=== PATIENT | male | born 1995 | race Two or more races ===

== ENCOUNTER 2017-09-19 15:53 | Inpatient (IN) | payer OTHER ==
[~2017-09-19] VITALS: Ht 180.3 cm; Wt 74.0 kg
--- NOTE | 2017-09-19 17:08 | REP ---
CT Head without contrast HISTORY: Hallucinations COMPARISON: None There is no intraparenchymal hemorrhage, acute infarct, mass or midline shift. The ventricular system is normal in appearance. There is no extra cerebral collection. There is no fracture. The visualized sinuses are clear. IMPRESSION: There is no intracranial lesion. Signed by Edison Prasad MD 09/19/2017 04:59 P
[2017-09-19 17:12] LABS: MEAN CORPUSCULAR HEMOGLOBIN 29.8 pg (27.0-33.0); MEAN CORPUSCULAR HGB CONC 32.1 g/dl (32.0-36.5); MEAN CORPUSCULAR VOLUME 92.8 fl (80.0-96.0); PLATELET COUNT, AUTOMATED 147 10^3/uL (150-450); RED CELL DISTRIBUTION WIDTH 11.9 % (11.5-14.5); WHITE BLOOD COUNT 6.9 10^3/uL (4.0-10.0)
[2017-09-19 17:37] LABS: ALBUMIN/GLOBULIN RATIO 1.43 (1.00-1.93); ALKALINE PHOSPHATASE 89 U/L (45-117); ALT/SGPT 27 U/L (12-78); ANION GAP 6 MEQ/L (8-16); AST/SGOT 23 U/L (7-37); BILIRUBIN,DIRECT 0.1 MG/DL (0.0-0.2); BILIRUBIN,TOTAL 0.4 MG/DL (0.2-1.0); BLOOD UREA NITROGEN 10 MG/DL (7-18); CARBON DIOXIDE LEVEL 29 MEQ/L (21-32); CHLORIDE LEVEL 107 MEQ/L (98-107); CREATININE FOR GFR 1.05 MG/DL (0.70-1.30); GLOMERULAR FILTRATION RATE > 60.0 (>60); GLUCOSE, FASTING 99 MG/DL (70-105); POTASSIUM SERUM 4.3 MEQ/L (3.5-5.1); SODIUM LEVEL 142 MEQ/L (136-145); TOTAL PROTEIN 6.8 GM/DL (6.4-8.2)
[2017-09-19 18:20] LABS: METHADONE URINE NEGATIVE (NEGATIVE)
[2017-09-19] MEDS ORDERED: MOM 30ML SUSPENSION UDC PO PRN (19:00)
[2017-09-19] MEDS ORDERED: traZODone 50 MG TAB PO PRN (19:00)
[2017-09-19] MEDS ORDERED: MAALOX 30 ML SUSP *UDC PO PRN (19:00)
[2017-09-19] MEDS ORDERED: ACETAMINOPHEN TAB 650MG DOSE (2X325MG) PO PRN (19:00)
[2017-09-19 22:28] VITALS: BP 126/79
[2017-09-19] MEDS ORDERED: guaiFENesin SYRUP 200 MG/10 ML UDC PO PRN (23:45)
[2017-09-20 07:00] VITALS: BP 109/80
--- NOTE | 2017-09-20 09:48 | HPEPDOC ---
[facility] Medical History & Physical Date of Admission Sep 19, 2017 History and Physical PCP: [facility] ATTENDING: Dr. Lyle Baptiste HPI: 22 yo M admitted to [facility] for unspecified psychotic disorder, being medically examined today. No acute medical complaints today. Denies any fevers, chills, weakness, fatigue, [place], CP, SOB, cough, palpitations, abdominal pain, N/V /D or changes in bowel or bladder habits. PMHx: Patient states history of hearing voices since 12/21 PSHX: [place] teeth extraction SOCHX: Resides in: [facility], from [place] Marital Status: Single Kids: None Employment: Active duty Tobacco use: Denies ETOH: Denies Illicit Drugs: Denies IV Drug Use: Denies Tattoos done unprofessionally: Denies FAMHX: Mother: Alive, well Father: Alive, well Siblings: Alive, well Children: None Unexpected deaths due to medical reasons: None. ROS: As noted in HPI, otherwise 11pt ROS of systems reviewed and remarkable only for observed head jerking/involuntary movements toward the left side. The patient states this is related to hearing voices currently. PE: GEN: 22 yo M, appears stated age. Well-nourished, well developed. No acute distress. Alert and oriented x 3. Avoids eye contact, provide short answers. HEENT: Normocephalic, atraumatic. Pupils are equal, round, and reactive to light. Extraocular movements are intact. No nystagmus appreciated. Sclera are nonicteric. Conjunctiva without injection. Nose midline. Nasal turbinates without bogginess. EACs both patent BL. TMs both visualized and young with good cone of light, no bulging or erythema. No facial asymmetry. Moist mucous membranes. Dentition fair. Pharynx pink and moist, no cobblestoning. Neck supple , trachea midline. No lymphadenopathy or thyromegaly appreciated. CHEST: Regular rate and rhythm, +S1, +S2 LUNGS: Clear to auscultation bilaterally. No wheezes, rales, or rhonchi. Breathing appears symmetric and easy. Patient is speaking in full sentences. No accessory muscle use. ABD: Round, soft, non-tender, non-distended. +Bowel sounds throughout. No rebound or guarding. No costovertebral angle tenderness. EXT: Pulses 2+ bilaterally dorsalis pedis and radial. No lower extremity edema appreciated. SKIN: [place], dry, warm. Capillary refill <2sec. No rashes. NEURO: Alert and oriented x 3. Cranial nerves III-XII are intact. No focal deficits appreciated. Involuntary movements of the head noted during exam. EKG: pending. CT head 09/19/17 There is no intracranial lesion. A&P: 22 yo M admitted to [facility] for unspecified psychotic disorder 1. Psych. Plan per Psychiatry. Obtain baseline EKG to assure the safety of psychiatric medications as they can prolong the QT interval. Request UA/urine culture. CT head 09/19/17 with no acute abnormality. 2. Follow up with PCP on discharge. 3. Staff member Ed present throughout exam. Vital Signs Vital Signs Date Time Temp Pulse Resp B/P (MAP) Pulse Ox O2 Delivery O2 Flow Rate FiO2 09/20/17 07:00 97.9 53 14 109/80 (90) 09/19/17 22:28 100 Room Air Laboratory Data Labs 24H Laboratory Tests 2 09/19/17 16:41: Nucleated Red Blood Cells % (auto) 0.0, Anion Gap 6L, Glomerular Filtration Rate > 60.0, Calcium Level 9.0, Aspartate Amino Transf (AST/SGOT) 23, Alanine Aminotransferase (ALT/SGPT) 27, Alkaline Phosphatase 89, Total Bilirubin 0.4, Direct Bilirubin 0.1, Total Protein 6.8, Albumin 4.0, Albumin/Globulin Ratio 1.43, Thyroid Stimulating Hormone (TSH) 0.916, Salicylates Level < 1.7L, Urine Amphetamines Screen NEGATIVE, Urine Benzodiazepines Screen NEGATIVE, Urine Opiates Screen NEGATIVE, Urine Methadone Screen NEGATIVE, Acetaminophen Level < 2.0L, Urine Barbiturates Screen NEGATIVE, Urine Phencyclidine Screen NEGATIVE, Urine Cocaine Metabolite Screen NEGATIVE, Urine Cannabinoids Screen NEGATIVE, Ethyl Alcohol Level < 0.003 CBC/BMP Laboratory Tests 09/19/17 16:41 Red Blood Count 4.70, Mean Corpuscular Volume 92.8, Mean Corpuscular Hemoglobin 29.8, Mean Corpuscular Hemoglobin Concent 32.1, Red Cell Distribution Width 11.9 Home Medications No Active Prescriptions or Reported Meds Allergies Coded Allergies: No Known Allergies (Unverified , 09/19/17) Katlyn Delgado Sep 20, 2017 09:48
[2017-09-20] MEDS ORDERED: traZODone 50 MG TAB PO PRN (10:30)
[2017-09-20] MEDS: CitaloPRAM (CeleXA) 20 MG TAB PO SCH (10:33)
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
[2017-09-20 18:00] VITALS: BP 118/58
[2017-09-20] MEDS ORDERED: PALIPERIDONE 3 MG ER TAB (INVEGA) PO SCH (21:00)
[2017-09-21 06:46] VITALS: BP 119/53
[2017-09-21] MEDS: CitaloPRAM (CeleXA) 20 MG TAB PO SCH (09:13)
--- NOTE | 2017-09-21 14:56 | REP ---
MR BRAIN WITHOUT CONTRAST: TECHNIQUE: Multiple sequences obtained in the sagittal, axial planes. No IV contrast was administered. Ventricles are normal in size and position with no midline shift or mass. The oro-white differentiation is well maintained. No abnormal signal is seen in the brain, brainstem or cerebellum. Seventh and eighth cranial nerves complexes appear unremarkable. There is a mild amount of mucosal thickening in the maxillary sinuses bilaterally. As well as in the bilateral ethmoid sinuses. The globes are intact. IMPRESSION: Essentially negative MRI brain. Mild mucosal thickening in the ethmoid and maxillary sinuses. Signed by Hakeem Oro MD 09/21/2017 11:58 A
--- NOTE | 2017-09-21 17:23 | MHIPNPDOC ---
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 He says these voices have never been command type apart from one instance when it was his mom's, telling him to clean his room. He says the voices have never told him to harm himself or others. VITAL SIGNS: See below. NEW TEST RESULTS: N/A CURRENT MEDICATIONS: See below. MENTAL STATUS EXAMINATION: General appearance: Cooperative, dressed in hospital clothes, with poor eye contact and no muscle spasms at this time Speech: Non-spontaneous, decreased in rate, rhythm and volume. Thought processes: Linear, logical Thought content: Denies suicidal ideation, homicidal ideation. he says there's a shadow outside of his window and that he hears a chain at night. He describes paranoid delusions, Abstract reasoning and computation: Not assessed at this time. Description of associations: Good Description of abnormal or psychotic thoughts: has auditory hallucinations, visual hallucinations, denies SI and denies HI. Judgment: Poor Insight: Poor Orientation: To person, place, time. Recent and remote memory: Intact Attention span and concentration: Poor Fund of knowledge: Average. Mood: "Depressed, I just want to go home, I want to be with my family. A little bit angry because the voices won't stop " Affect: Depressed DIAGNOSES: 1. Unspecified psychotic disorder 2. Unspecified depressive disorder 3. Post traumatic stress disorder (PTSD). 4. Cluster B traits ASSESSMENT: Patient is a little bit better, even when he describes auditory hallucinations. he is not presenting with muscle twitching and his mood and affect are still depressed but a little less than yesterday. Increased Invega to 3 mgs. PO BID TIME SPENT: 20 minutes. Vital Signs Vital Signs Date Time Temp Pulse Resp B/P (MAP) Pulse Ox O2 Delivery O2 Flow Rate FiO2 09/21/17 06:46 97.7 66 14 119/53 (75) Room Air 11/16/17 22:28 100 Current Medications Current Medications Acetaminophen (Tylenol Tab) 650 mg Q6HP PRN PO HEADACHE or DISCOMFORT; Start 09/19/17 at 19:00; Stop 10/19/17 at 18:59 Al Hydrox/Mg Hydrox/Simethicone (Mylanta) 30 ml Q4HP PRN PO HEARTBURN/ INDIGESTION; Start 09/19/17 at 19:00; Stop 10/19/17 at 18:59 Citalopram Hydrobromide (CeleXA) 20 mg DAILY PO Last administered on 09:13; Start 09/20/17 at 09:00; Stop 10/20/17 at 08:59 Guaifenesin (Robitussin) 10 ml Q6HP PRN PO COUGH; Start 09/19/17 at 23:45; Stop 10/19/17 at 23:44 Home Med (Med Rec Complete!) ASDIRECTED XX ; Start 09/19/17 at 19:00; Stop at 19:01; Status DC Magnesium Hydroxide (Milk Of Magnesia) 30 ml DAILYPRN PRN PO CONSTIPATION; Start 09/19/17 at 19:00; Stop 10/19/17 at 18:59 Paliperidone (Invega) 3 mg QHS PO Last administered on 09/20/17t 21:19; Start 09/20/17 at 21:00; Stop 10/20/17 at 20:59 Trazodone HCl (Desyrel) 50 mg QHSP PRN PO INSOMNIA; Start 09/19/17 at 19:00; Stop 09/20/17 at 10:19; Status DC Trazodone HCl (Desyrel) 75 mg QHSP PRN PO INSOMNIA; Start 09/20/17 at 10:30; Stop 09/20/17 at 13:41; Status DC Trazodone HCl (Desyrel) 75 mg QHSP PRN PO INSOMNIA; Start 09/20/17 at 13:45; Stop 10/20/17 at 13:44 Allergies Coded Allergies: No Known Allergies (Unverified , 09/19/17) ISH BERMAN MD Sep 21, 2017 17:23
[2017-09-21 18:00] VITALS: BP 122/66
[2017-09-21] MEDS: PALIPERIDONE 3 MG ER TAB (INVEGA) PO SCH (21:14)
[2017-09-21] MEDS: traZODone 25MG PER 1/2 TABLET PO PRN (21:15)
[2017-09-22 06:00] VITALS: BP 101/56
[2017-09-22] MEDS: CitaloPRAM (CeleXA) 20 MG TAB PO SCH (08:52)
[2017-09-22] MEDS: PALIPERIDONE 3 MG ER TAB (INVEGA) PO SCH ×2 (08:53→20:36)
--- NOTE | 2017-09-22 14:28 | MHIPNPDOC ---
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 He says these voices have never been command type apart from one instance when it was his mom's, telling him to clean his room. He says the voices have never told him to harm himself or others. VITAL SIGNS: See below. NEW TEST RESULTS: N/A CURRENT MEDICATIONS: See below. MENTAL STATUS EXAMINATION: General appearance: Cooperative, pleasant, presents with no muscle spasms at this time. Good hygiene and grooming, poor eye contact, dressed in hospital clothes Speech: Non spontaneous and nonfluent but is normal in tone, volume and rate Thought processes: Coherent Thought content: Denies suicidal ideation, homicidal ideation. He says "the voices are getting quieter, I only hear a female voice as if she will be trying to catch my attention by calling my name". Admits occasional paranoid ideations. Abstract reasoning and computation: Fair Description of associations: Good Description of abnormal or psychotic thoughts: Denies visual hallucinations but admits to hearing a female voice . He said "the voices are getting quieter" .he denies SI and denies HI. Judgment: Poor Insight: Poor Orientation: To person, place, time. Recent and remote memory: Intact Attention span and concentration: Poor Fund of knowledge: Average. Mood: "Depressed, I just want to go home, I want to be with my family. A little bit angry because the voices won't stop " Affect: Depressed DIAGNOSES: 1. Unspecified psychotic disorder 2. Unspecified depressive disorder 3. Post traumatic stress disorder (PTSD). 4. Cluster B traits ASSESSMENT: The patient says that he feels much better, he is not having visual hallucinations and according to him the auditory hallucinations have decreased to the point that he is only hearing a female voice that is trying to catch his attention. He says he still feels tired and he has been asking for being discharged because he wants to go home with his family. This morning his mother contacted the nurses station because he told his mother that I needed and I explained to the community sports coordinator who took the phone call that I never told him that I wanted to speak with his mom. 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 Patient will continue on Invega 3 mg by mouth twice a day and hopefully if he continues to improve will be looking at a discharge her on September 25. TIME SPENT: 20 minutes. Vital Signs Vital Signs Date Time Temp Pulse Resp B/P (MAP) Pulse Ox O2 Delivery O2 Flow Rate FiO2 09/22/17 06:00 97.3 57 14 101/56 (71) 09/21/17 06:46 Room Air 09/19/17 22:28 100 Current Medications Current Medications Acetaminophen (Tylenol Tab) 650 mg Q6HP PRN PO HEADACHE or DISCOMFORT; Start 09/19/17 at 19:00; Stop 10/19/17 at 18:59 Al Hydrox/Mg Hydrox/Simethicone (Mylanta) 30 ml Q4HP PRN PO HEARTBURN/ INDIGESTION; Start 09/19/17 at 19:00; Stop 10/19/17 at 18:59 Citalopram Hydrobromide (CeleXA) 20 mg DAILY PO Last administered on 08:52; Start 09/20/17 at 09:00; Stop 10/20/17 at 08:59 Guaifenesin (Robitussin) 10 ml Q6HP PRN PO COUGH; Start 09/19/17 at 23:45; Stop 10/19/17 at 23:44 Home Med (Med Rec Complete!) ASDIRECTED XX ; Start 09/19/17 at 19:00; Stop at 19:01; Status DC Magnesium Hydroxide (Milk Of Magnesia) 30 ml DAILYPRN PRN PO CONSTIPATION; Start 09/19/17 at 19:00; Stop 10/19/17 at 18:59 Paliperidone (Invega) 3 mg BID PO Last administered on 09/22/17 08:53; Start 09/21/17 at 21:00; Stop 10/20/17 at 20:59 Paliperidone (Invega) 3 mg QHS PO Last administered on 09/20/17 21:19; Start 09/20/17 at 21:00; Stop 09/21/17 at 17:40; Status DC Trazodone HCl (Desyrel) 50 mg QHSP PRN PO INSOMNIA; Start 09/19/17 at 19:00; Stop 09/20/17 at 10:19; Status DC Trazodone HCl (Desyrel) 75 mg QHSP PRN PO INSOMNIA; Start 09/20/17 at 10:30; Stop 09/20/17 at 13:41; Status DC Trazodone HCl (Desyrel) 75 mg QHSP PRN PO INSOMNIA Last administered on t 21:15; Start 09/20/17 at 13:45; Stop 10/20/17 at 13:44 Allergies Coded Allergies: No Known Allergies (Unverified , 09/19/17) ISH BERMAN MD Sep 22, 2017 14:28
[2017-09-22] MEDS ORDERED: diphenhydrAMINE 50 MG CAP PO PRN (14:30)
[2017-09-22 18:00] VITALS: BP 110/66
[2017-09-22] MEDS: traZODone 25MG PER 1/2 TABLET PO PRN (20:36)
[2017-09-23 06:00] VITALS: BP 107/54
[2017-09-23] MEDS: CitaloPRAM (CeleXA) 20 MG TAB PO SCH (09:04)
[2017-09-23] MEDS: PALIPERIDONE 3 MG ER TAB (INVEGA) PO SCH ×2 (09:04→21:45)
--- NOTE | 2017-09-23 15:04 | MHIPNPDOC ---
[facility] Progress Note Progress Note DATE OF SERVICE: 09/23/17 HISTORY: Patient is a 22-year-old male, [employer], who has "no" prior psychiatric or significant medical history apart from "an inhaler for allergies ". 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 He says these voices have never been command type apart from one instance when it was his mom's, telling him to clean his room. He says the voices have never told him to harm himself or others. VITAL SIGNS: See below. NEW TEST RESULTS: N/A CURRENT MEDICATIONS: See below. MENTAL STATUS EXAMINATION: General appearance: Cooperative, pleasant, with good eye contact. Good hygiene and grooming, poor eye contact, dressed in hospital clothes Speech: More spontaneous and fluent at this time. Thought processes: Linear Thought content: focused on how he is gong to overcome his disease Abstract reasoning and computation: Fair Description of associations: Good Description of abnormal or psychotic thoughts: Denies A/V hallucinations. He denies SI and denies HI. Denies thought delusions Judgment: Limited Insight: Limited Orientation: To person, place, time. Recent and remote memory: Intact Attention span and concentration: Fair Fund of knowledge: Average. Mood: "I'm doing well today " Affect: Euthymic DIAGNOSES: 1. Unspecified psychotic disorder 2. Unspecified depressive disorder 3. Post traumatic stress disorder (PTSD). 4. Cluster B traits ASSESSMENT: The patient says he feels better, he says he is not having auditory hallucinations and his paranoid delusions are gone.He remembers having paranoid delusions when this episode started. At the very beginning it was only sadness but shortly after the voices came in and he says those voices were telling him he was worthless, useless nobody cared about hi. The voices made him feel very upset. The patient could have Major Depressive d/O with psychotic features. TIME SPENT: 20 minutes. Vital Signs Vital Signs Date Time Temp Pulse Resp B/P (MAP) Pulse Ox O2 Delivery O2 Flow Rate FiO2 09/23/17 06:00 98.2 60 16 107/54 (71) 09/21/17 06:46 Room Air 11/16/17 22:28 100 Current Medications Current Medications Acetaminophen (Tylenol Tab) 650 mg Q6HP PRN PO HEADACHE or DISCOMFORT; Start 09/19/17 at 19:00; Stop 10/19/17 at 18:59 Al Hydrox/Mg Hydrox/Simethicone (Mylanta) 30 ml Q4HP PRN PO HEARTBURN/ INDIGESTION Last administered on 09/22/17 20:36; Start 09/19/17 at 19:00; Stop 10/19/17 at 18:59 Citalopram Hydrobromide (CeleXA) 20 mg DAILY PO Last administered on 09:04; Start 09/20/17 at 09:00; Stop 10/20/17 at 08:59 Diphenhydramine HCl (Benadryl) 50 mg Q8HP PRN PO MUSCLE SPASMS; Start at 14:30; Stop 10/22/17 at 14:29 Guaifenesin (Robitussin) 10 ml Q6HP PRN PO COUGH; Start 09/19/17 at 23:45; Stop 10/19/17 at 23:44 Home Med (Med Rec Complete!) ASDIRECTED XX ; Start 09/19/17 at 19:00; Stop at 19:01; Status DC Magnesium Hydroxide (Milk Of Magnesia) 30 ml DAILYPRN PRN PO CONSTIPATION; Start 09/19/17 at 19:00; Stop 10/19/17 at 18:59 Paliperidone (Invega) 3 mg BID PO Last administered on 09/23/17 09:04; Start 09/21/17 at 21:00; Stop 10/20/17 at 20:59 Paliperidone (Invega) 3 mg QHS PO Last administered on 09/20/17 21:19; Start 09/20/17 at 21:00; Stop 09/21/17 at 17:40; Status DC Trazodone HCl (Desyrel) 50 mg QHSP PRN PO INSOMNIA; Start 09/19/17 at 19:00; Stop 09/20/17 at 10:19; Status DC Trazodone HCl (Desyrel) 75 mg QHSP PRN PO INSOMNIA; Start 09/20/17 at 10:30; Stop 09/20/17 at 13:41; Status DC Trazodone HCl (Desyrel) 75 mg QHSP PRN PO INSOMNIA Last administered on t 20:36; Start 09/20/17 at 13:45; Stop 10/20/17 at 13:44 Allergies Coded Allergies: No Known Allergies (Unverified , 09/19/17) ISH BERMAN MD Sep 23, 2017 15:04
[2017-09-23 18:00] VITALS: BP 148/70
[2017-09-23] MEDS: traZODone 25MG PER 1/2 TABLET PO PRN (22:20)
[2017-09-24 06:42] VITALS: BP 114/57
[2017-09-24] MEDS: PALIPERIDONE 3 MG ER TAB (INVEGA) PO SCH ×2 (09:15→21:15)
[2017-09-24] MEDS: CitaloPRAM (CeleXA) 10 MG TABLET PO SCH (09:16)
--- NOTE | 2017-09-24 15:16 | MHIPNPDOC ---
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 He says these voices have never been command type apart from one instance when it was his mom's, telling him to clean his room. He says the voices have never told him to harm himself or others. VITAL SIGNS: See below. NEW TEST RESULTS: N/A CURRENT MEDICATIONS: See below. MENTAL STATUS EXAMINATION: General appearance: Cooperative, pleasant, with good eye contact. Good hygiene and grooming, poor eye contact, dressed in hospital clothes Speech: More spontaneous and fluent at this time. Thought processes: Linear Thought content: focused on how he is going to cope in the with his illness Abstract reasoning and computation: Fair Description of associations: Good Description of abnormal or psychotic thoughts: Denies A/V hallucinations. He denies SI and denies HI. Denies thought delusions Judgment: Limited Insight: Limited Orientation: To person, place, time. Recent and remote memory: Intact Attention span and concentration: Fair Fund of knowledge: Average. Mood: "I'm doing better " Affect: Euthymic DIAGNOSES: 1. Major Depressive Disorder with psychotic symptoms 3. Post traumatic stress disorder (PTSD). ASSESSMENT: Patient continues to say he is doing better, he says his mood is fine, he denies SI?HI and denies visual hallucinations. He says that ocassionally he hears a female voice that calls him by his name or only says "ssshhht". he says he feels ready to be discharged tomorrow. He understands he is not going to be discharged to his family, he will be d/c'd to [place] and he is agreeable to that. PLAN: Will discuss possible discharge with D/C account planner tomorrow, 09/25/17. Will f/u. TIME SPENT:20 minutes Vital Signs Vital Signs Date Time Temp Pulse Resp B/P (MAP) Pulse Ox O2 Delivery O2 Flow Rate FiO2 09/24/17 06:42 97.4 50 14 114/57 (76) 09/21/17 06:46 Room Air 09/19/17 22:28 100 Current Medications Current Medications Acetaminophen (Tylenol Tab) 650 mg Q6HP PRN PO HEADACHE or DISCOMFORT; Start 09/19/17 at 19:00; Stop 10/19/17 at 18:59 Al Hydrox/Mg Hydrox/Simethicone (Mylanta) 30 ml Q4HP PRN PO HEARTBURN/ INDIGESTION Last administered on 09/22/17 20:36; Start 09/19/17 at 19:00; Stop 10/19/17 at 18:59 Citalopram Hydrobromide (CeleXA) 20 mg DAILY PO Last administered on 09:04; Start 09/20/17 at 09:00; Stop 09/23/17 at 15:05; Status DC Citalopram Hydrobromide (CeleXA) 30 mg DAILY PO Last administered on 09:16; Start 09/24/17 at 09:00; Stop 10/24/17 at 08:59 Diphenhydramine HCl (Benadryl) 50 mg Q8HP PRN PO MUSCLE SPASMS; Start at 14:30; Stop 10/22/17 at 14:29 Guaifenesin (Robitussin) 10 ml Q6HP PRN PO COUGH; Start 09/19/17 at 23:45; Stop 10/19/17 at 23:44 Home Med (Med Rec Complete!) ASDIRECTED XX ; Start 09/19/17 at 19:00; Stop at 19:01; Status DC Magnesium Hydroxide (Milk Of Magnesia) 30 ml DAILYPRN PRN PO CONSTIPATION; Start 09/19/17 at 19:00; Stop 10/19/17 at 18:59 Paliperidone (Invega) 3 mg BID PO Last administered on 09/24/17 09:15; Start 09/21/17 at 21:00; Stop 10/20/17 at 20:59 Paliperidone (Invega) 3 mg QHS PO Last administered on 09/20/17 21:19; Start 09/20/17 at 21:00; Stop 09/21/17 at 17:40; Status DC Trazodone HCl (Desyrel) 50 mg QHSP PRN PO INSOMNIA; Start 09/19/17 at 19:00; Stop 09/20/17 at 10:19; Status DC Trazodone HCl (Desyrel) 75 mg QHSP PRN PO INSOMNIA; Start 09/20/17 at 10:30; Stop 09/20/17 at 13:41; Status DC Trazodone HCl (Desyrel) 75 mg QHSP PRN PO INSOMNIA Last administered on t 22:20; Start 09/20/17 at 13:45; Stop 10/20/17 at 13:44 Allergies Coded Allergies: No Known Allergies (Unverified , 09/19/17) ISH BERMAN MD Sep 24, 2017 15:16
[2017-09-24 18:00] VITALS: BP 126/70
[2017-09-24] MEDS: traZODone 25MG PER 1/2 TABLET PO PRN (22:28)
[2017-09-25 06:32] VITALS: BP 104/54
[2017-09-25] MEDS ORDERED: PALI1TAB2 PO (10:15)
[2017-09-25] MEDS ORDERED: CELE10TA PO (10:15)
[2017-09-25] MEDS ORDERED: DIPH50CA PO (10:15)
[2017-09-25] MEDS: CitaloPRAM (CeleXA) 10 MG TABLET PO SCH (10:18)
[2017-09-25] MEDS: PALIPERIDONE 3 MG ER TAB (INVEGA) PO SCH (10:18)
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
== END 2017-09-25 12:30 | disposition home or self-care (01) | DRG 885 ==
LOC: M ED 15:53 → M ED INP 18:52 → M PSY 22:34
PROVIDERS: ADMIT Psychiatry & Neurology Psychiatry; ATTEND Psychiatry & Neurology Psychiatry
DX: F32.3 Major depressive disorder, single episode, severe with psychotic features (principal)